=== PATIENT | male | born 1970 | race Caucasian/White ===

== ENCOUNTER 2024-07-31 22:00 | Emergency (ER) | payer SELFPAY ==
[2024-07-31 22:07] VITALS: TEMP 97.3
[2024-07-31] MEDS: MORPHINE SULFATE 4 MG/ML SYRINGE IM STA (23:02)
--- NOTE | 2024-08-01 00:43 | ED ---
Lower Extremity Injury HPI - General Chief Complaint: Extremity Injury, Lower Stated Complaint: L Leg Injury Time Seen by Provider: 07/31/24 22:15 Source: patient Mode of arrival: wheelchair Limitations: no limitations - History of Present Illness Initial Comments: 54-year-old male presents the emergency department with report of left ankle pa in. States that he was hunting and dragging a deer. He accidentally rolled his left ankle outward and heard a snap. He has attempted to put weight on it however it is very painful. There is a significant amount of swelling. He does admit that he has been drinking some beers. Denies injury to any other area of his body. No head injury. Denies any neck or back pain. No pain in his upper extremities. He does not take any blood thinners. He did not take anything for pain before coming in. No other alleviating, precipitating or modifying factors - Related Data Previous Rx's Medication Instructions Recorded HYDROcodone/APAP 10-325MG [A[address] 1 tab PO Q4HR PRN #18 tab 08/01/24 10-325] Allergies Allergy/AdvReac Type Severity Reaction Status Date / Time No Known Allergies Allergy Verified 07/31/24 22:07 Review of Systems ROS Statement: Those systems with pertinent positive or pertinent negative responses have been documented in the HPI. ROS Other: All systems not noted in ROS Statement are negative. Past Medical History Past Medical History: No Reported History History of Any Multi-Drug Resistant Organisms: None Reported Past Surgical History: No Surgical Hx Reported Past Psychological History: No Psychological Hx Reported Smoking Status: Never smoker Past Alcohol Use History: Daily Past Drug Use History: None Reported General Exam Limitations: no limitations General appearance: alert, appears intoxicated Head exam: Present: atraumatic, normocephalic, normal inspection Eye exam: Present: normal appearance, PERRL, EOMI. Absent: scleral icterus, conjunctival injection, periorbital swelling Extremities exam: Present: other (Swelling about the left ankle. Significant tenderness to the lateral malleoli. 2+ DP and PT pulses. Cap refills less than 3 seconds) Back exam: Present: normal inspection Neurological exam: Present: alert, oriented X3 Skin exam: Present: warm, dry, intact, normal color. Absent: rash Course Vital Signs 07/31/24 08/01/24 22:04 01:55 Temperature 97.3 F L Pulse Rate 80 88 Respiratory 18 16 Rate Blood Pressure 116/79 117/80 O2 Sat by Pulse 97 95 Oximetry Procedures - Orthopedic Splinting/Casting Injury #1 Side: left Lower Extremity Injury Location: ankle Lower Extremity Immobilizer: posterior splint, stirrup splint, Axel wrap, synthetic pre-padded splint Other Orthopedic Equipment: crutches Medical Decision Making - Medical Decision Making Was pt. sent in by a medical professional or institution (, GORAN, CARDIOLOGY TECHNICIAN, urgent care, hospital, or senior living...) When possible be specific @ -No Did you speak to anyone other than the patient for history (EMS, parent, family, police, friend...)? What history was obtained from this source @ -Spoke with for history Did you review nursing and triage notes (agree or disagree)? Why? @ -I reviewed and agree with nursing and triage notes Were old charts reviewed (outside hosp., previous admission, EMS record, old EKG, old radiological studies, urgent care reports/EKG's, senior living records)? Report findings @ -No old charts were reviewed Differential Diagnosis (chest pain, altered mental status, abdominal pain women, abdominal pain men, vaginal bleeding, weakness, fever, dyspnea, syncope, headache, dizziness, GI bleed, back pain, seizure, CVA, palpatations, mental health, musculoskeletal)? @ -Differential Musculoskeletal Muscular strain, contusion, ligament sprain, fracture, arthritis, septic arthritis, bursitis, cellulitis, muscle spasm, nerve compression, DVT, arterial occlusion, herpes zoster, electrolyte abnormality, tumor.... This is not meant to be in all inclusive list EKG interpreted by me (3pts min.). @ -Not done X-rays interpreted by me (1pt min.). @ -Yes and demonstrates a bimalleolar fracture CT interpreted by me (1pt min.). @ -Yes and demonstrates the bimalleolar fracture U/S interpreted by me (1pt. min.). @ -None done What testing was considered but not performed or refused? (CT, X-rays, U/S, labs)? Why? @ -None What meds were considered but not given or refused? Why? @ -None Did you discuss the management of the patient with other professionals (professionals i.e. , GORAN, CARDIOLOGY TECHNICIAN, lab, RT, psych nurse, social media specialist, supervisor display fabrication, teacher, light armored reconnaissance officer, case finisher)? Give summary @ -I spoke with Dr. Baldwin who was agreeable to obtaining a CT and having the patient follow-up in office Was smoking cessation discussed for >3mins.? @ -No Was critical care preformed (if so, how long)? @ -No Were there social determinants of health that impacted care today? How? (Homelessness, low income, unemployed, alcoholism, drug addiction, transportation, low edu. Level, literacy, decrease access to med. care, senior living, rehab)? @ -No Was there de-escalation of care discussed even if they declined (Discuss DNR or withdrawal of care, Hospice)? DNR status @ -No What co-morbidities impacted this encounter? (DM, HTN, Smoking, COPD, CAD, Cancer, CVA, ARF, Chemo, Hep., AIDS, mental health diagnosis, sleep apnea, morbid obesity)? @ -None Was patient admitted / discharged? Hospital course, mention meds given and route, prescriptions, significant lab abnormalities, going to OR and other pertinent info. @ -Upon arrival patient seen and evaluated in room 30. Thorough history and physical exam was performed. X-ray was performed which demonstrates a by mall fracture with disruption of the joint space concerning for ligamentous injury. I spoke with Dr. Marin who was agreeable to CT, splint and follow-up in office. CT was performed. Patient was placed in a posterior and stirrup splint. Patient is instructed to nonweight bear. He is given a prescription for crutches if we do not have his size on hand. He will be given a prescription for pain medications. Instructed to take them as directed. He has not allowed to drink while taking the pain medications. He is to follow-up with the orthopedic office and return for any new or worsening symptoms. Patient agreeable plan was discharged in stable condition Undiagnosed new problem with uncertain prognosis? @ -No Drug Therapy requiring intensive monitoring for toxicity (Heparin, Nitro, Insulin, Cardizem)? @ -No Were any procedures done? @ -Splint placement left leg Diagnosis/symptom? @ -Acute fall, left bimalleolar fracture Acute, or Chronic, or Acute on Chronic? @ -Acute Uncomplicated (without systemic symptoms) or Complicated (systemic symptoms)? @ -Complicated Side effects of treatment? @ -No Exacerbation, Progression, or Severe Exacerbation? @ -No Poses a threat to life or bodily function? How? (Chest pain, USA, MS, pneumonia, PE, COPD, DKA, ARF, appy, cholecystitis, CVA, Diverticulitis, Homicidal, Suicidal, threat to staff... and all critical care pts) @ -No Disposition Clinical Impression: Bimalleolar ankle fracture Disposition: HOME SELF-CARE Condition: Stable Instructions (If sedation given, give patient instructions): Ankle Fracture (ED) Additional Instructions: Use the crutches to ambulate. Do not weight-bear. Rest, ice and elevate the extremity 6 times a day for 20 minutes. Take the pain medications as needed. Call on Saturday to make an appointment with the orthopedic surgeon. Do not get the splint wet. Return for any new or worsening symptoms Prescriptions: HYDROcodone/APAP 10-325MG [Avenue 10-325] 1 tab PO Q4HR PRN #18 tab PRN Reason: pain Is patient prescribed a controlled substance at d/c from ED?: Yes When asked, does pt state using other controlled substances?: No If prescribed controlled substance>3 days was MAPS reviewed?: Prescribed <3 Days If opioid is for acute pain is fill amount 7 days or less?: Yes If Rx opioid, was Start Talking consent form obtained?: No Referrals: Randal Avila MD [Primary Care Provider] - 1-2 days Riaz Wallace DO [Doctor of Osteopathic Medicine] - 1-2 days Time of Disposition: 01:41
[2024-08-01] MEDS: HYDROcodone/APAP 10-325MG 1 EACH TAB PO ONE (00:45)
[2024-08-01] MEDS: ACET/COD 300 MG/30 MG STARTER PACK 6 TAB BTL PO STA (00:46)
[2024-08-01 02:04] VITALS: BP 117/80; PULSE 88; RESP 16
--- NOTE | 2024-08-01 06:41 | XR ---
EXAM: XR Left Ankle Complete, 3 or More Views CLINICAL HISTORY: ITS.REASON XR Reason: fall, left ankle pain TECHNIQUE: Frontal, lateral and oblique views of the left ankle. COMPARISON: No relevant prior studies available. FINDINGS: Bones/joints: Comminuted obliquely oriented fracture is visualized to the distal fibula originating at the level of the tibiotalar joint. Posterior tibial fracture. No dislocation. Soft tissues: Soft tissue swelling is seen surrounding the ankle. Other findings: Widening of the medial clear space. IMPRESSION: Distal fibular fracture and posterior tibial plafond fracture. Widening of the medial clear space highly suggestive of underlying ligamentous injury.
--- NOTE | 2024-08-01 06:54 | CT ---
EXAM: CT Left Lower Extremity Without Intravenous Contrast, Ankle CLINICAL HISTORY: ITS.REASON CT Reason: ankle fx TECHNIQUE: Axial computed tomography images of the left ankle without intravenous contrast. CTDI is 3.3 mGy and DLP is 139.8 mGy-cm. This CT exam was performed using one or more of the following dose reduction techniques: automated exposure control, adjustment of the mA and/or kV according to patient size, and/or use of iterative reconstruction technique. COMPARISON: No relevant prior studies available. FINDINGS: Bones/joints: Comminuted distal fibular fracture originating at the level of the tibiotalar joint. A fracture of the posterior tibial plafond. Plantar calcaneal and Achilles tendon enthesophytes. No dislocation. Soft tissues: Soft tissue swelling is seen surrounding the ankle. Other findings: Widening of the medial clear space. No evidence of tendinous entrapment. IMPRESSION: Tibial and fibular fractures with out CT evidence of adjacent tendon entrapment.
== END 2024-08-01 01:55 | disposition home or self-care (01) ==
LOC: EC 22:00
CPT/HCPCS: 29515; 96372; 99284

== ENCOUNTER 2024-08-07 07:37 | Day surgery (SDC) | payer BC ==
[2024-08-05 15:40] VITALS: BMI 29.8
[~2024-08-07 07:37] MED LIST: HYDROmorphone 0.5 MG/0.5 ML SYRINGE IVP PRN; SCOPOLAMINE 1 MG/72 HR PATCH TRANSDERM ONE
[2024-08-07] MEDS: IV FLUID CONTINUATION 1,000 ML IV ONE (07:46)
[2024-08-07] MEDS: LACTATED RINGERS 1,000 ML IV SCH (08:03)
[2024-08-07] MEDS: ONDANSETRON 4 MG/2 ML VIAL IVP ONE (08:18)
[2024-08-07] MEDS: DEXAMETHASONE SOD PHOSPHATE 4 MG/ML 1 ML VIAL IV ONE (08:19)
[2024-08-07] MEDS: MIDAZOLAM 2 MG/2 ML VIAL IV PRN (08:31)
[2024-08-07] MEDS: fentaNYL (PF) 50 MCG/ML 2 ML AMP IVP STA (08:31)
[2024-08-07] MEDS ORDERED: ROPIVACAINE 5 MG/ML 30 ML VIAL ONE (09:18)
[2024-08-07] MEDS ORDERED: HYDROmorphone (PF) 1 MG/ML ONE (09:18)
[2024-08-07] MEDS ORDERED: VASOPRESSIN 20 UNIT/ML 1 ML VIAL ONE (09:18)
[2024-08-07] MEDS ORDERED: PROPOFOL 10 MG/ML 20 ML VIAL IV ONE (09:18)
[2024-08-07] MEDS ORDERED: fentaNYL (PF) 50 MCG/ML 2 ML AMP ONE (09:18)
[2024-08-07] MEDS ORDERED: LIDOCAINE 1% INJ 10MG/ML (20 ML MDV) ONE (09:18)
[2024-08-07] MEDS ORDERED: PHENYLEPHRINE 10 MG/ML VIAL ONE (09:18)
[2024-08-07] MEDS ORDERED: SUCCINYLCHOLINE CHLORIDE 200 MG/10 ML VIAL IV ONE (09:18)
[2024-08-07] MEDS ORDERED: SODIUM CHLORIDE 0.9% (PF) 10 ML VIAL ONE (09:18)
[2024-08-07] MEDS ORDERED: MIDAZOLAM 2 MG/2 ML VIAL ONE (09:18)
[2024-08-07] MEDS: ceFAZolin 1,000 MG in SODIUM CHLORIDE 0.9% 1,000 ML IRRIGATION ONE (09:23)
--- NOTE | 2024-08-07 09:45 | P.ANPRN ---
Procedure Note - Anesthesia - Nerve Block Performed Left Popliteal Single Time Out Performed: Yes (0830) Date of Procedure: 08/07/24 Procedure Start Time: : Procedure Stop Time: :36 Location of Patient: PreOp Indication: Acute Post-Operative Pain, Requested by Surgeon Specifically requested for management of pain by DrCaron: Jose Hernandez Sedation Type: Sedate with meaningful contact maintained Preparation: Sterile Prep Position: Supine Catheter: None Needle Types: Pajunk Needle Gauge: 21 Ultrasound used to visualize needle placement: Yes Ultrasound used to observe medication spread: Yes Injectate: 0.5% Ropivacaine (see comment for volume) (15cc+10cc nacl pf) Blood Aspirated: No Pain Paresthesia on Injection Noted: No Resistance on Injection: Normal Image Stored and Saved: Yes Events: Uneventful and Well Tolerated
--- NOTE | 2024-08-07 09:46 | P.ANPRN ---
Procedure Note - Anesthesia - Nerve Block Performed Left Adductor Canal Single Time Out Performed: Yes (0830) Date of Procedure: 08/07/24 Procedure Start Time: 08:37 Procedure Stop Time: 08:41 Indication: Acute Post-Operative Pain, Requested by Surgeon Specifically requested for management of pain by DrCaron: Jose Hernandez Sedation Type: Sedate with meaningful contact maintained Preparation: Sterile Prep Position: Supine Catheter: None Needle Types: Pajunk Needle Gauge: 21 Ultrasound used to visualize needle placement: Yes Ultrasound used to observe medication spread: Yes Injectate: 0.5% Ropivacaine (see comment for volume) (15cc+10cc nacl pf) Blood Aspirated: No Pain Paresthesia on Injection Noted: No Resistance on Injection: Normal Image Stored and Saved: Yes Events: Uneventful and Well Tolerated
[2024-08-07] MEDS: LACTATED RINGERS 1,000 ML IV ONE (10:50)
[2024-08-07 11:52] VITALS: TEMP 97.7
--- NOTE | 2024-08-07 11:59 | XR ---
Intraoperative/procedural fluoroscopic services were provided for ORIF left ankle. Total fluoroscopy time is 2.39 minutes with a total of 4 submitted images to PACS. Total DAP [id number] mGym2. Please see the operative note for further details. [facility], , 08/07/2024 11:57 AM
[2024-08-07 12:04] VITALS: RESP 18
[2024-08-07 12:51] VITALS: BP 117/73; PULSE 86
--- NOTE | 2024-08-17 12:55 | P.OP ---
Date of Procedure: 08/07/24 Preoperative Diagnosis: 1. Displaced bimalleolar fracture (posterior and lateral malleolus) left ankle 2. Ruptured syndesmosis left ankle 3. Possible deltoid rupture left ankle Postoperative Diagnosis: 1. Displaced bimalleolar fracture (posterior and lateral malleolus) left ankle 2. Ruptured syndesmosis left ankle Procedure(s) Performed: 1. Open reduction with internal fixation bimalleolar ankle fracture 2. Open reduction with internal fixation left syndesmotic rupture Implants: [place] small fragment plate, [place] one third tubular plate, Arthrex tight rope 2 Anesthesia: GETA Surgeon: Jose Hernandez Estimated Blood Loss (ml): 20 Pathology: none sent Condition: stable Disposition: PACU Description of Procedure: Prior to the patient being brought to the operating room, anesthesia administered a nerve block on the operative lower extremity. the patient brought into the operative room where timeout was taken to confirm correct patient identifiers, correct lateral view of surgery, and correct procedure. Once all staff in the room were in agreement timeout the patient was induced and placed under general anesthesia. The patient then rolled onto the prone position on the operating room table. Anesthesia confirmed proper positioning the patient. A well-padded tourniquet was placed on the left thigh. The leg was then prepped and draped in usual manner. The leg was exsanguinated with an Esmarch bandage and then the tourniquet was inflated to 250 mmHg. attention was directed over the posterior lateral ankle, where an incision was made between the peroneal tendons in the Achilles tendon. Incision was deepened down to the subcutaneous tissue to identify, avoid, and retract any neurovascular structures and cauterize any bleeding vessels. Blunt dissection was carried down to the fascia overlying the flexor hallucis longus muscle belly. The fascia was incised and reflected medially and laterally. The septa between the flexor hallucis longus and the peroneal tendons was identified and then the muscle masses were at the septa and reflected medially and laterally. The posterior aspect of the tibia was exposed. Because the fracture was small and in reasonable alignment, there is no significant dissection over the area to reduce the fractures. Therefore a small fragment plate with a triangular shape at the distal aspect was placed over the fracture. Fluoroscopy was used to adjust the alignment of the plate so that it overlying the fracture line. AP and lateral views on fluoroscopy confirmed the proper position of the plate. Temporary fixation was performed. Nonlocking compression screws were placed in the distal portion of the plate to lock the fracture in place. A nonlocking screw was then placed distal to the fracture to contour the plate to provide buttressing of the fracture. The last screw was a locking screw at the most proximal hole to hold the construct in place. Fluoroscopic imaging showed reduction of the fracture as well as proper placement of the hardware on AP and lateral views. Then dissection was done over the lateral malleolar fracture. The fracture was identified and isolated. Interposing soft tissue and hematoma were removed from between the fracture fragments. The distractor was used to bring the fracture back out to length and realigned the fragments. Once aligned wire was placed through the skin and across the fracture to temporarily fixated. Fluoroscopy confirmed that the fracture was well reduced. A [employer] one third tubular plate was then positioned on the posterior aspect of the fibula across the fracture. It was adjusted under fluoroscopy until correctly aligned and then temporarily fixated. A nonlocking screws placed distally from posterior to anterior through the plate. The second screw was another nonlocking screw p laced proximal to the fracture. Both of these were used to contour the plate to the posterior fibula. Fluoroscopic imaging confirmed the proper alignment the fracture as well as proper placement of hardware. One locking screw was placed distally and another proximally to complete the construct. Once that was done live fluoroscopy was used to assess the syndesmosis. With external rotation and eversion stress testing, there was gapping of the medial gutter as well as increased motion of the syndesmosis. Therefore the decision was made to place syndesmotic fixation. Access to the lateral aspect of the fibula for the placement of the suture button was accessed through the same posterior-lateral incision. A 2 hole plate was positioned and adjusted under fluoroscopy. Once positioned, it was temporarily fixated with an olive wire. Drilling for the tightrope was performed, through the 2 hold plate, using standard technique. A clamp was positioned to maintain reduction of the syndesmosis, with the ankle in maximum dorsiflexion and without overtightening. The tightrope was inserted until the medial button was cleared of the tibia cortex. The button was released and manipulated until lying flat on the tibia. The fiber analyst was removed and the lateral button tightened fully to the plate. Stress testing was performed again and the decision was made to use a second tightrope. This was done with the same technique as the first only with slight divergence of the anchors. Stress resting showed stable fixation. The wounds were irrigated with antibiotic saline. Deep and intermediate closure was done with 2-0 Vicryl. Subcutaenous closure was done with 4-0 Monocryl and skin done with lexx. A Arthrex Jumpstart was placed on the incision. A bulky, dry dressing was applied to the leg. The tourniquet was released and capillary refill returned to all digits on the foot.Then a well-padded, well-molded plaster posterior mold/sugar tong splint was applied. The ankle was held in neutral until dry. Anesthesia was reversed and the patient taken to recovery with vital signs stable
== END 2024-08-07 13:03 | disposition home or self-care (01) ==
LOC: OR 07:37
PROVIDERS: ATTEND Podiatrist
CPT/HCPCS: 64445; 64447; 84132